=== PATIENT | male | born 2000 | race Caucasian/White ===

== ENCOUNTER 2021-08-01 10:24 | Outpatient (CLI) | payer OTHER | END 2021-08-01 10:25 | disposition home or self-care (01) | LOC: SCSMRI 10:24 | PROVIDERS: ATTEND Nurse Practitioner Family | DX: M43.16 Spondylolisthesis, lumbar region (principal); M54.18 Radiculopathy, sacral and sacrococcygeal region; M48.07 Spinal stenosis, lumbosacral region | CPT/HCPCS: 72148 ==